=== PATIENT | male | born 1985 | race African-American/Black ===

== ENCOUNTER 2019-08-28 22:31 | Observation (INO) ==
[2019-08-28] MEDS ORDERED: ONDANSETRON 4 MG/2 ML VIAL IV STA (23:26)
[2019-08-28] MEDS ORDERED: MORPHINE 4 MG/1 ML VIAL IV STA (23:26)
[2019-08-28] MEDS ORDERED: SODIUM CHLORIDE 0.9% 1,000 ML IV STA (23:26)
[2019-08-28] MEDS ORDERED: FAMOTIDINE 20 MG/2 ML VIAL IV STA (23:27)
[2019-08-29 00:06] LABS: Basophils % 0.2 % (0.0-0.8); Eosinophils % 0.8 % (0.00-10.9); Hemoglobin 13.3 GM/DL (14.0-18.0); Immature Granulocytes % 0.4 %; Immature Granulocytes Absolute 0.02 #; Lymphocytes # 0.8 10*3/uL (1.4-4.0); Lymphocytes % 16.1 % (21.2-54.2); Mean Corpuscular HGB Conc 30.9 GM/DL (32-36); Mean Corpuscular Volume 95.1 FL (87-102); Mean Platelet Volume 11.6 FL (9.6-12.0); Monocytes % 12.3 % (1.7-12.7); Neutrophils % 70.2 % (38.7-73.9); Platelet Count 166 T/CUMM (130-400); Red Blood Count 4.52 MC/CUMM (3.8-5.5); Red Cell Distribution Width 12.6 % (9.3-17.3)
[2019-08-29 00:14] LABS: Apearance,Urine CLEAR (Clear); Bacteria,Urine Occasional /HPF (Few); Bilirubin,Urine Negative (Negative); Blood, Urine Negative (Negative); Glucose,Urine (UA) Negative (Negative); Ketones,Urine Negative (Negative); Mucus,Urine Occasional /LPF (Occasional); Nitrite,Urine Negative (Negative); Protein,Urine Negative; RBC,Urine 2 /HPF (0-4); Urine Color Yellow (Yellow); Urine Specific Gravity 1.011 (1.001-1.035); Urine Urobilinogen < 2.0 EU/DL (0.2-1.0); WBC,Urine 1 /HPF (0-6)
[2019-08-29 00:24] LABS: Albumin 3.8 G/DL (3.4-5.0); Bilirubin,Total 0.4 MG/DL (0.2-1.0); Calcium 8.2 MG/DL (8.5-10.1); Osmolality,Calculated 272.8 MOS/KG (273-304); Total Protein 7.3 G/DL (6.4-8.3)
[2019-08-29] MEDS ORDERED: PIPERACILLIN/TAZOBACTAM 3,375 MG in SODIUM CHLORIDE 0.9% 100 ML IV STA (02:53)
[2019-08-29] MEDS ORDERED: MORPHINE 4 MG/1 ML VIAL IV PRN (02:54)
[2019-08-29] MEDS ORDERED: ONDANSETRON 4 MG/2 ML VIAL IV PRN (02:54)
[2019-08-29] MEDS: DEXTROSE 5% NACL 0.45% 1,000 ML IV SCH ×2 (03:50→12:21)
[2019-08-29] MEDS ORDERED: PANTOPRAZOLE 40 MG VIAL IV SCH (09:00)
[2019-08-29] MEDS ORDERED: PIPERACILLIN/TAZOBACTAM 3,375 MG in SODIUM CHLORIDE 0.9% 100 ML IV SCH (11:00)
[2019-08-29 11:48] VITALS: BP 119/63
== END 2019-08-29 15:00 | disposition home or self-care (01) ==
LOC: EDUNIT# → EDBD → N.EDINP 22:31 → N.ED 22:31 → N.3E 08-29 03:15
PROVIDERS: ADMIT Surgery; ATTEND Surgery

== ENCOUNTER 2020-02-07 04:37 | Inpatient (IN) ==
[2020-02-07] MEDS ORDERED: SODIUM CHLORIDE 0.9% 1,000 ML IV STA (05:25)
[2020-02-07 05:34] LABS: Basophils % 0.1 % (0.0-0.8); Eosinophils % 0.1 % (0.00-10.9); Hematocrit 41.8 VOL% (42.0-52.0); Hemoglobin 12.9 GM/DL (14.0-18.0); Immature Granulocytes % 0.8 %; Immature Granulocytes Absolute 0.15 #; Lymphocytes # 0.8 10*3/uL (1.4-4.0); Lymphocytes % 4.4 % (21.2-54.2); Mean Corpuscular HGB Conc 30.9 GM/DL (32-36); Mean Corpuscular Volume 95.9 FL (87-102); Mean Platelet Volume 12.1 FL (9.6-12.0); Monocytes % 7.1 % (1.7-12.7); Neutrophils % 87.5 % (38.7-73.9); Platelet Count 211 T/CUMM (130-400); Red Blood Count 4.36 MC/CUMM (3.8-5.5); White Blood Count 18.7 T/CUMM (4-12)
[2020-02-07] MEDS ORDERED: ONDANSETRON 4 MG/2 ML VIAL IV PRN (05:44)
[2020-02-07 05:47] LABS: Barbiturates Screen,Urine Negative (Negative); Benzodiazepines Screen,Urine Negative (Negative); Cannabinoid Screen,Urine Negative (Negative); Opiate Screen,Urine Negative (Negative); Phencyclidine Screen,Urine Negative (Negative)
[2020-02-07 05:51] LABS: PT Patient Result 10.9 SECS (9.8-11.9)
[2020-02-07 05:54] LABS: Band Neutrophils 1 % (0-10); Hypochromasia 1+; Lymphocytes 4 % (20-55); Polychromasia Slight; Segmented Neutrophils 89 % (50-85); Total Cells Counted 100
[2020-02-07 05:55] LABS: Macrocytosis Slight; Platelet Estimate Normal
[2020-02-07 05:56] LABS: Alanine Aminotransferase 82 U/L (16-61); Alkaline Phosphatase 53 U/L (45-117); Aspartate Amino Transferase 111 U/L (0-37); Blood Urea Nitrogen 24 MG/DL (7-18); Calcium 9.5 MG/DL (8.5-10.1); Estimated Glom Filtration Rate 75 ML/MIN; Glucose 130 MG/DL (74-106); Osmolality,Calculated 271.4 MOS/KG (273-304); Total Protein 8.1 G/DL (6.4-8.3)
[2020-02-07] MEDS ORDERED: DEXTROSE 5% NACL 0.45% 1,000 ML IV SCH (06:00)
[2020-02-07] MEDS: MORPHINE 4 MG/1 ML VIAL IV PRN ×2 (07:46→11:26)
[2020-02-07] MEDS ORDERED: ceFAZolin 2,000 MG in PREMIX 1 EACH IV ONE (09:34)
[2020-02-07] MEDS: LACTATED RINGERS 1,000 ML IV SCH ×2 (10:23→18:53)
[2020-02-07] MEDS ORDERED: BACITRACIN OINT 0.9 GM PACK TOP ONE (11:49)
[2020-02-07] MEDS ORDERED: DEXMEDETOMIDINE 200 MCG/2 ML VIAL ONE (12:03)
[2020-02-07] MEDS ORDERED: MORPHINE 4 MG/1 ML VIAL IV PRN (14:28)
[2020-02-07] MEDS ORDERED: MAGNESIUM HYDROXIDE SUSP 30 ML UDCUP PO PRN (14:28)
[2020-02-07] MEDS ORDERED: ZALEPLON 5 MG CAPSULE PO PRN (14:28)
[2020-02-07] MEDS ORDERED: diphenhydrAMINE CAP 25 MG CAPSULE PO PRN (14:28)
[2020-02-07] MEDS ORDERED: LIDOCAINE 2% 5 ML VIAL ONE ×2 (15:02→15:05)
[2020-02-07] MEDS ORDERED: DEXAMETHASONE 4 MG/1 ML VIAL ONE (15:02)
[2020-02-07] MEDS ORDERED: BUPIVACAINE MPF 0.5% /EPI 30 ML VIAL ONE (15:02)
[2020-02-07] MEDS ORDERED: MIDAZOLAM 2 MG/2 ML VIAL ONE (15:05)
[2020-02-07] MEDS ORDERED: PHENYLEPHRINE DRIP 20 MG/250 ML PREMIX IV ONE (15:05)
[2020-02-07] MEDS ORDERED: fentaNYL 100 MCG/2 ML VIAL ONE (15:05)
[2020-02-07] MEDS ORDERED: propofoL 200 MG/20 ML VIAL IV ONE (15:05)
[2020-02-07] MEDS ORDERED: SEVOFLURANE 1 UNIT/15 MINUTE INH ONE (15:05)
[2020-02-07] MEDS ORDERED: SUCCINYLCHOLINE 200 MG/10 ML VIAL ONE (15:06)
[2020-02-07] MEDS ORDERED: PHENYLEPHRINE 1 MG/10 ML SYRINGE IV ONE (15:06)
[2020-02-07] MEDS ORDERED: ROCURONIUM 100 MG/10 ML VIAL IV ONE (15:06)
[2020-02-07] MEDS ORDERED: ePHEDrine 50 MG/ML AMP ONE (15:06)
[2020-02-07] MEDS ORDERED: PHENYLEPHRINE 10 MG/1 ML VIAL IV ONE (15:06)
[2020-02-07] MEDS ORDERED: LACTATED RINGERS 1,000 ML IV ONE (15:07)
[2020-02-07] MEDS: KETOROLAC 30 MG/1 ML VIAL IV SCH ×2 (16:21→21:55)
[2020-02-07] MEDS: ceFAZolin 2,000 MG in PREMIX 1 EACH IV SCH (18:31)
[2020-02-07] MEDS: DOCUSATE SODIUM 100 MG CAPSULE PO SCH (21:58)
[2020-02-08] MEDS: ceFAZolin 2,000 MG in PREMIX 1 EACH IV SCH (02:46)
[2020-02-08] MEDS: KETOROLAC 30 MG/1 ML VIAL IV SCH ×2 (03:51→10:21)
[2020-02-08] MEDS: LACTATED RINGERS 1,000 ML IV SCH ×2 (04:38→09:47)
[2020-02-08 06:35] LABS: Basophils % 0.1 % (0.0-0.8); Hematocrit 31.5 VOL% (42.0-52.0); Hemoglobin 9.5 GM/DL (14.0-18.0); Immature Granulocytes % 0.7 %; Immature Granulocytes Absolute 0.06 #; Lymphocytes # 1.2 10*3/uL (1.4-4.0); Lymphocytes % 12.9 % (21.2-54.2); Mean Corpuscular HGB Conc 30.2 GM/DL (32-36); Mean Corpuscular Volume 96.3 FL (87-102); Mean Platelet Volume 11.9 FL (9.6-12.0); Monocytes % 9.3 % (1.7-12.7); Platelet Count 147 T/CUMM (130-400); Red Blood Count 3.27 MC/CUMM (3.8-5.5); Red Cell Distribution Width 12.3 % (9.3-17.3); White Blood Count 9.2 T/CUMM (4-12)
[2020-02-08] MEDS: FONDAPARINUX 2.5 MG/0.5 ML SYRINGE SUBCUT SCH (08:43)
[2020-02-08] MEDS: amLODIPine 10 MG TABLET PO SCH (08:43)
[2020-02-08] MEDS: lisinopriL 20 MG TABLET PO SCH (08:43)
[2020-02-08] MEDS: DOCUSATE SODIUM 100 MG CAPSULE PO SCH ×2 (08:44→21:45)
[2020-02-08 17:44] LABS: Calcium 8.6 MG/DL (8.5-10.1); Osmolality,Calculated 273.1 MOS/KG (273-304)
[2020-02-08] MEDS: MORPHINE 4 MG/1 ML VIAL IV PRN (18:57)
[2020-02-09] MEDS: MORPHINE 4 MG/1 ML VIAL IV PRN ×2 (02:09→14:46)
[2020-02-09 06:15] LABS: Basophils % 0.4 % (0.0-0.8); Eosinophils # 0.1 10*3/uL (0.0-0.87); Hemoglobin 8.3 GM/DL (14.0-18.0); Immature Granulocytes % 0.4 %; Immature Granulocytes Absolute 0.03 #; Lymphocytes % 28.4 % (21.2-54.2); Mean Corpuscular HGB Conc 30.7 GM/DL (32-36); Mean Corpuscular Volume 96.1 FL (87-102); Monocytes % 10.7 % (1.7-12.7); Neutrophils % 59.1 % (38.7-73.9); Platelet Count 119 T/CUMM (130-400); Red Blood Count 2.81 MC/CUMM (3.8-5.5)
[2020-02-09] MEDS: lisinopriL 20 MG TABLET PO SCH (09:00)
[2020-02-09] MEDS: FONDAPARINUX 2.5 MG/0.5 ML SYRINGE SUBCUT SCH (09:00)
[2020-02-09] MEDS: DOCUSATE SODIUM 100 MG CAPSULE PO SCH (09:00)
[2020-02-09] MEDS: amLODIPine 10 MG TABLET PO SCH (09:00)
[2020-02-09 17:03] VITALS: BP 148/70
== END 2020-02-09 17:10 | disposition home or self-care (01) | DRG 482 ==
LOC: N.EDINP 04:37 → N.ED 04:37 → N.EDINP 09:10 → N.3E 09:13
PROVIDERS: ADMIT Orthopaedic Surgery; ATTEND Orthopaedic Surgery